=== PATIENT | female | born 1995 | race Hispanic/Latino ===

== ENCOUNTER 2017-05-25 08:25 | Emergency (ER) | payer BC, OTHER ==
[2017-05-25 09:28] LABS: HIV (1/2) Antibody/Antigen Non-Reactive (NonReactive); HIV 1/2 INDEX 0.11 S/CO (<1.00); Hep C IgG Ab Non-Reactive (NonReactive); Hep C Index 0.11 S/CO (0-0.79)
[2017-05-25 10:46] LABS: HBSAB Concentration 24.63 mIU/mL
[2017-05-25 10:47] LABS: Hep B Surf AB Reactive (NonReactive)
== END 2017-05-25 09:55 | disposition home or self-care (01) ==
LOC: ERS 08:25
DX: S61.231A Puncture wound without foreign body of left index finger without damage to nail, initial encounter (principal); W46.0XXA Contact with hypodermic needle, initial encounter
CPT/HCPCS: 36415; 86706; 86803; 87389; 99283

== ENCOUNTER 2017-10-05 14:49 | Emergency (ER) | payer BC | END 2017-10-05 15:42 | disposition home or self-care (01) | LOC: ERS 14:49 | DX: H00.022 Hordeolum internum right lower eyelid (principal) | CPT/HCPCS: 99283 ==

== ENCOUNTER 2023-09-27 09:25 | Day surgery (SDC) | payer BC ==
[2023-09-25 11:07] VITALS: BMI 28.3
[2023-09-27] MEDS ORDERED: PROPOFOL 40 ML ONE (10:08)
[2023-09-27] MEDS ORDERED: fentaNYL PF 100 MCG/2 ML SYRINGE ONE (10:08)
[2023-09-27] MEDS ORDERED: Dexamethasone 20 MG/5 ML VIAL ONE (10:10)
[2023-09-27] MEDS ORDERED: Lidocaine 1% PF 5 ML VIAL ONE (10:10)
[2023-09-27] MEDS ORDERED: Ondansetron PF 4 MG/2 ML Vial ONE (10:10)
[2023-09-27] MEDS ORDERED: Rocuronium Bromide 10 MG/ML (10ML VIAL) ONE (10:32)
[2023-09-27] MEDS ORDERED: Ferric Subsulfate 8 ML TOPICAL SOLN ONE (10:55)
[2023-09-27] MEDS ORDERED: SUGAMMADEX SODIUM 200 MG/2 ML VIAL ONE (11:22)
[2023-09-27] MEDS ORDERED: fentaNYL 50 mcg/mL 1 mL Vial ONE (12:00)
[2023-09-27] MEDS ORDERED: Hydrocodone-Acetamin 15 ML UDCUP ONE (13:28)
== END 2023-09-27 13:50 | disposition home or self-care (01) ==
LOC: SDC 09:25
PROVIDERS: ATTEND Specialist
PROC: 0CTPXZZ Resection of Tonsils, External Approach (ICD-10-PCS; principal; 2023-09-27)
DX: J35.3 Hypertrophy of tonsils with hypertrophy of adenoids (principal); J35.01 Chronic tonsillitis; G47.30 Sleep apnea, unspecified
CPT/HCPCS: 88304; J1100; J2405; J2704; J3010

== ENCOUNTER 2024-01-08 11:14 | Emergency (ER) | payer BC | END 2024-01-08 14:45 | disposition left against medical advice (07) | LOC: ERS 11:14 | DX: Z53.21 Procedure and treatment not carried out due to patient leaving prior to being seen by health care provider (principal) ==